=== PATIENT | female | born 1945 | race Caucasian/White ===

== ENCOUNTER → 2021-02-19 09:58 | Outpatient (CLI) | payer MEDICARE, OTHER, SELFPAY ==
[2021-02-19 10:22] LABS: Basophils # 0.1 K/mm3 (0-0.2); Basophils % 1.3 % (0.1-2.0); Eosinophils # 0.2 K/mm3 (0.0-0.4); Eosinophils % 2.2 % (0.1-12.0); Hematocrit 46.5 % (37.0-47.0); Hemoglobin 14.8 g/dL (12.2-16.2); Lymphocytes # 1.8 K/mm3 (0.7-4.5); Lymphocytes % 27.4 % (10-50); Mean Corpuscular HGB Conc 31.8 g/dL (31.8-35.4); Mean Corpuscular Hemoglobin 30.3 pg (27.0-31.2); Mean Corpuscular Volume 95.4 fl (81-99); Mean Platelet Volume 7.6 fl (7.4-10.4); Monocytes # 0.4 K/mm3 (0.1-1.0); Neutrophils # 4.2 K/mm3 (1.8-7.8); Neutrophils % 63.1 % (37.0-80.0); Platelet Count 304 K/mm3 (142-424); Red Blood Count 4.88 M/mm3 (4.20-5.40); White Blood Count 6.6 K/mm3 (4.8-10.8)
[2021-02-19 10:51] LABS: Chloride 108 mmol/L (98-107)
[2021-02-19 10:52] LABS: Potassium 4.2 mmoL/L (3.5-5.1); Sodium 143 mmol/L (136-145)
[2021-02-19 10:54] LABS: Alanine Aminotransferase 14 U/L (12-78); Alkaline Phosphatase 73 U/L (38-126); Anion Gap 12.2 mEq/L (5-15); Aspartate Amino Transferase 23 U/L (14-36); Bilirubin,Total 0.9 mg/dl (0.2-1.3); Blood Urea Nitrogen 20 mg/dl (7-17); Carbon Dioxide 27 mmol/L (22.0-30.0); Cholesterol 153 mg/dl (140-200); Estimated Glomerular Filt Rate 70 ml/min (>60); GFR (African American) 84 ML/MIN (>60); Triglycerides 59 mg/dl (30-150); VLDL Cholesterol 12 mg/dL (0-40)
[2021-02-19 10:55] LABS: Albumin Level 4.3 g/dl (3.5-5.0); Calcium 8.9 mg/dl (8.4-10.2); Globulin 2.2 g/dL (1.3-3.2); Glucose 87 mg/dl (74-100); HDL Cholesterol 79 mg/dl (40-60); Total Protein,Serum 6.5 g/dl (6.3-8.2)
[2021-02-19 10:58] LABS: Chol/HDL Ratio 1.9 (1-3.5)
[2021-02-19 11:06] LABS: Direct LDL Cholesterol 53.96 mg/dL (100-129)
[2021-02-19 11:11] LABS: 25-OH Vitamin D, Total 35.3 ng/mL (30-100)
[2021-02-19 11:25] LABS: Thyroid Stimulating Hormone 3.18 uIU/mL (0.465-4.68)
== END ==
PROVIDERS: Visit Provider Internal Medicine Adolescent Medicine
DX: I48.0 Paroxysmal atrial fibrillation (principal); M79.7 Fibromyalgia; M89.49 Other hypertrophic osteoarthropathy, multiple sites; G47.33 Obstructive sleep apnea (adult) (pediatric); E66.9 Obesity, unspecified; Z68.33 Body mass index [BMI] 33.0-33.9, adult
CPT/HCPCS: 36415; 80053; 80061; 82306; 84443; 85025

== ENCOUNTER → 2021-05-26 10:49 | Outpatient (POV) | payer MEDICARE, OTHER, SELFPAY | PROVIDERS: Visit Provider Dermatology | DX: Z00.00 Encounter for general adult medical examination without abnormal findings (principal) ==

== ENCOUNTER → 2021-06-23 14:13 | Outpatient (CLI) | payer MEDICARE, OTHER, SELFPAY ==
--- NOTE | 2021-06-23 14:20 | CA_ITS ---
APPROVED REPORT EXAM: Comprehensive 2D, Doppler, and color-flow Echocardiogram Data Processing Manager: Rebeca Beach, RCS, RVS Ht: 5 ft 6 in Wt: 210lbs BSA: 2.04 BP: 108/68 mmHg Indications: COPD, HTN, A-Fib, SOB, Hx- RadiationTherapy 2D Dimensions IVSd 0.94 cm F: 0.6-1.0 LVEF (Visual) 77.90 % PWd 0.90 cm F: 0.6 - 1.0 LA Volume 52.10 mL LVDd 4.99 cm F: 3.9 - 5.3 LA Volume Index 25.53 mL/m2 (M/F) 16-34 LVDs 2.66 cm F: 2.2 - 3.5 Left Atrium 3.66 cm F: 2.7 - 3.8 LVOT 1.95 cm (M/F) 1.5-2.5 M-Mode Dimensions LA Diam 4.00 cm (1.9-4.0) Ao Diam 2.92 cm (2.0-3.7) EPSs 0.44 cm TAPSE 1.96 (<1.7) LV Diastology E Decel Time 277.00 (160-240 msec) E/A Ratio 0.82 MED E' 8.20 (< 7 cm/sec) MED A' 12.40 cm/s E'/MED E' Ratio 8.73 (>14) LAT E' 7.00 (<10 cm/sec) LAT A' 12.70 cm/s E/LAT E' Ratio 10.23 (>14) Aortic Valve LVOT Max 123.00 (70-110 cm/s) LVOT VTI 28.60 cm AoV Peak Shawn. 194.00 (50-130 cm/s) AI PHT 559.00 ms AO Peak GR. 15.10 mmHg AO Mean GR. 7.30 (<5 mmHg) AO VTI 42.90 (18-25 cm) ROBERTO (VTI) 1.99 (2.5-4.5 cm2) Mitral Valve MV A Velocity 87.00 (40-130 cm/s) E/A Ratio 0.82 MV Decel. Time 277.00 (160-240 ms) Pulmonary Valve PV Peak Velocity 75.00 (50-150 cm/s) Tricuspid Valve TR P. Velocity 246.00 cm/s RAP Estimate 10.00 mmHg RVSP 34.30 mmHg Left Ventricle Left atrium is mildly enlarged, left ventricle is normal size, mild concentric left ventricular hypertrophy, visually estimated ejection fraction 55% with no regional wall motion abnormality, grade 1 diastolic dysfunction seen without tissue Doppler evidence of raise left atrial pressure. Right Ventricle Right atrium and right ventricle are mildly enlarged with normal contractility. Aortic Valve Aortic valve is thickened and calcified without Doppler evidence of aortic stenosis, there is mild aortic insufficiency. Mitral Valve Mitral valve grossly normal, there is mild mitral regurgitation. Tricuspid Valve Tricuspid grossly normal, there is mild tricuspid regurgitation, calculated right ventricular systolic pressure is 34 mmHg. Pulmonic Valve Pulmonic valve is poorly visualized. Great Vessels Aortic root is normal size. Inferior vena cava normal size with normal inspiratory collapse. Pericardium No significant pericardial effusion noted. Conclusion 1. Mild biatrial enlargement, normal left ventricular size, mild concentric left ventricular hypertrophy, visually estimated ejection fraction 55% with no regional wall motion abnormality, grade 1 diastolic dysfunction seen without tissue Doppler evidence of raise left atrial pressure. 2. Mildly enlarged right ventricle with normal contractility. 3. Mild aortic, mild mitral and tricuspid regurgitation. 4. No significant pericardial effusion noted. Electronically signed by : Ortega Ragland MD 06/23/2021 21:12:02
== END ==
PROVIDERS: PCP Internal Medicine Adolescent Medicine; Visit Provider Internal Medicine Adolescent Medicine
DX: I48.0 Paroxysmal atrial fibrillation (principal)
CPT/HCPCS: 93306

== ENCOUNTER → 2022-02-08 12:55 | Outpatient (CLI) | payer MEDICARE, OTHER, SELFPAY ==
--- NOTE | 2022-02-08 12:58 | MM_ITS ---
PROCEDURE INFORMATION: Exam: Bilateral Screening 3D Mammography Exam date and time: 02/08/2022 1:28 PM Age: 76 years old Clinical indication: Screening examination TECHNIQUE: Imaging protocol: Bilateral Screening tomosynthesis and 2D mammography including computer-aided detection (CAD) when performed. COMPARISON: No relevant prior studies available. FINDINGS: MAMMOGRAPHY: Breast composition: The breast is heterogeneously dense, which may obscure small masses. Mass: 14 mm mass within the lower slightly inner anterior right breast (possibly glandular structure) should be further assessed with spot views in CC/MLO projection. Ultrasound should also be performed. Architectural distortion: No new or suspicious architectural distortion. Calcifications: Stable benign-appearing calcifications are present. No new or suspicious cluster of microcalcifications have developed. Asymmetric density: No new or suspicious asymmetric density is present Skin thickening: None. Axillary adenopathy: None. IMPRESSION: 14 mm mass within the lower slightly inner anterior right breast (possibly glandular structure) should be further assessed with spot views in CC/MLO projection. Ultrasound should also be performed. ASSESSMENT: BI-RADS category 0: Incomplete-need additional imaging evaluation and/or prior mammograms for comparison.
== END ==
PROVIDERS: PCP Internal Medicine Adolescent Medicine; Visit Provider Nurse Practitioner Family
DX: Z12.31 Encounter for screening mammogram for malignant neoplasm of breast (principal); Z85.3 Personal history of malignant neoplasm of breast
CPT/HCPCS: 77063; 77067

== ENCOUNTER → 2022-06-02 10:12 | Outpatient (CLI) | payer MEDICARE, OTHER, SELFPAY ==
--- NOTE | 2022-06-02 10:18 | XR_ITS ---
FINAL REPORT CLINICAL HISTORY: cough FINDINGS: Two views of the chest show lungs to be clear. Pulmonary vascularity is normal. Heart and mediastinum are unremarkable. No pleural effusion is present. IMPRESSION: No active disease. Reviewed, Interpreted and Dictated by Eryn Jiang MD Transcribed by Gina Kaur Authenticated and . [facility]
== END ==
PROVIDERS: PCP Internal Medicine Adolescent Medicine; Visit Provider Internal Medicine Pulmonary Disease
DX: R05.3 Chronic cough (principal)
CPT/HCPCS: 71046

== ENCOUNTER → 2023-02-22 09:17 | Outpatient (CLI) | payer MEDICARE, OTHER, SELFPAY ==
--- NOTE | 2023-02-22 09:24 | MM_ITS ---
PROCEDURE INFORMATION: Exam: MG Bilateral Screening 3D Mammography Exam date and time: 02/22/2023 9:13 AM Age: 77 years old Clinical indication: Screening mammogram TECHNIQUE: Imaging protocol: Bilateral Screening tomosynthesis and 2D mammography including computer-aided detection (CAD) when performed. COMPARISON: 1. MG MM DIG SCREENING MAMM BI W/CAD 02/08/2022 1:28 PM 2. MG MM Mammogram Diagnostic DDI Bilat 01/06/2021 1:43 PM FINDINGS: MAMMOGRAPHY: Breast composition: The breast is heterogeneously dense, which may obscure small masses. Mass: None. Stable benign right axillary tail subcentimeter lymph node is incidentally noted Architectural distortion: No new or suspicious architectural distortion. Calcifications: No new or suspicious calcifications are present Asymmetric density: No new or suspicious asymmetric density is present Skin thickening: None. Axillary adenopathy: None. IMPRESSION: No mammographic evidence of malignancy. Recommend annual screening mammography unless otherwise clinically indicated. ASSESSMENT: BI-RADS category 2: Benign
--- NOTE | 2023-02-22 09:26 | XR_ITS ---
FINAL REPORT TECHNIQUE: Bone densitometry calculations of the lumbar spine and left hip were obtained. 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 This may be falsely elevated secondary to hypertrophic changes. Using the left hip, the bone mineral density of the femoral neck is 0.740 g/cm2, corresponding to a T-score of -1.7. Using the right hip, the bone mineral density of the femoral neck is 0.798 g/cm2, corresponding to a T-score of -1.2. NOTE: T-score: Standard deviation compared with peak bone mass of young adult mean. *Following the recommendations of the International Society of Bone densitometry, classification of hip BMD is based on the lower of two T-scores; total hip or femoral neck. IMPRESSION: Diminished bone mineral density of the hips consistent with osteopenia. Normal bone mineral density of the lumbar spine however may be falsely elevated secondary to hypertrophic changes. FRAX data reports major osteoporotic fracture of 21% and hip fracture of 5.3%. Reviewed, Interpreted and Dictated by Jerry Henderson MD Transcribed by Gina Kaur Authenticated and [facility]
== END ==
PROVIDERS: PCP Internal Medicine Adolescent Medicine; Visit Provider Internal Medicine Medical Oncology
DX: Z12.31 Encounter for screening mammogram for malignant neoplasm of breast (principal); Z78.0 Asymptomatic menopausal state
CPT/HCPCS: 77063; 77067; 77080

== ENCOUNTER → 2023-03-09 16:11 | Outpatient (CLI) | payer MEDICARE, OTHER, SELFPAY ==
--- NOTE | 2023-03-09 16:18 | XR_ITS ---
PROCEDURE INFORMATION: Exam: XR Left Foot Complete; Alignment Exam date and time: 03/09/2023 4:31 PM Age: 77 years old Clinical indication: Patient HX: Left foot pain, no injury. 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 TECHNIQUE: Imaging protocol: Radiologic exam of the left foot. Views: 3 or more views. COMPARISON: No relevant prior studies available. FINDINGS: Bones/joints: No visible fracture or dislocation. Lisfranc interval is intact. Mild hallux valgus deformity Soft tissues: Normal. IMPRESSION: No visible fracture or dislocation.
--- NOTE | 2023-03-09 16:18 | XR_ITS ---
PROCEDURE INFORMATION: Exam: XR Right Ankle Exam date and time: 03/09/2023 4:31 PM Age: 77 years old Clinical indication: Patient HX: Left ankle pain, no known injury. 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 TECHNIQUE: Imaging protocol: Radiologic exam of the right ankle. Views: 3 or more views. COMPARISON: No relevant prior studies available. FINDINGS: Bones/joints: No visible fracture or dislocation. The mortise joint space is symmetric. Calcaneal spur noted Soft tissues: Normal. IMPRESSION: No visible fracture or dislocation.
--- NOTE | 2023-03-09 16:18 | XR_ITS ---
PROCEDURE INFORMATION: Exam: XR Right Foot Complete; Alignment Exam date and time: 03/09/2023 4:31 PM Age: 77 years old Clinical indication: Patient HX: Right foot pain, no known injury. 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 TECHNIQUE: Imaging protocol: Radiologic exam of the right foot. Views: 3 or more views. COMPARISON: No relevant prior studies available. FINDINGS: Bones/joints: No visible fracture or dislocation. Lisfranc interval is intact. Mild hallux valgus deformity noted. Soft tissues: Normal. IMPRESSION: No visible fracture or dislocation.
--- NOTE | 2023-03-09 16:18 | XR_ITS ---
PROCEDURE INFORMATION: Exam: XR Left Ankle Exam date and time: 03/09/2023 4:31 PM Age: 77 years old Clinical indication: Patient HX: Left ankle pain, no known injury. 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 TECHNIQUE: Imaging protocol: Radiologic exam of the left ankle. Views: 3 or more views. COMPARISON: No relevant prior studies available. FINDINGS: Bones/joints: No visible fracture or dislocation. The mortise joint space is symmetric. Small calcaneal spur noted Soft tissues: Normal. IMPRESSION: No visible fracture or dislocation.
== END ==
PROVIDERS: PCP Nurse Practitioner Family; Visit Provider Nurse Practitioner Family
DX: M79.671 Pain in right foot (principal); M79.672 Pain in left foot; M25.571 Pain in right ankle and joints of right foot; M25.572 Pain in left ankle and joints of left foot; M20.11 Hallux valgus (acquired), right foot; M20.12 Hallux valgus (acquired), left foot
CPT/HCPCS: 73610; 73630

== ENCOUNTER 2024-03-01 12:39 | Outpatient (CLI) | payer MEDICARE, OTHER, SELFPAY | END 2024-03-01 23:59 | disposition home or self-care (01) | LOC: RAD 12:40 | PROVIDERS: PCP Nurse Practitioner Family; Visit Provider Internal Medicine Medical Oncology | DX: Z12.31 Encounter for screening mammogram for malignant neoplasm of breast (principal) | CPT/HCPCS: 77063; 77067 ==

== ENCOUNTER 2024-05-15 09:20 | Outpatient (CLI) | payer MEDICARE, OTHER, SELFPAY ==
--- OUTSIDE RECORDS SUMMARY | 2024-05-15 09:22 | XMS_ITS | Continuity of Care Document ---
Author Name [facility] Organization Interface Problems Problem Status Onset Date Classification Date Reported Comments Source Tobacco use(<span ID= [id number] > Confirmed</span>) Resolved 2 12/23/2021 [facility] [place] Breast cancer Active 2 12/23/2021 [facility] [place] Obstructive sleep apnea syndrome (disorder) 0 04/09/2020 [facility] [place] Obesity (disorder) 0 04/09/[address] [facility] [place] Dyspnea (finding) 0 04/09/2020 [facility] [place] ELAINE on CPAP Active 0 04/09/[address] [facility] [place] BOWDEN (dyspnea on exertion) Active 0 04/09/[address] [facility] [place] Obesity (BMI 30.0-34.9) Active 0 04/09/2020 [facility] [place] Pneumonia (disorder) 0 02/19/[address] [facility] [place] Dyspnea Active 0 02/19/2020 [facility] [place] PNA (pneumonia) Active 0 02/19/2020 [facility] [place] SOB (shortness of breath) 9 03/06/[address] 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 Med S[facility]hdev Pulol[facility], [facility] [place], Critical access hospital, [facility] Glaucoma(<span ID= [id number] > Confirmed</span>) Active 12/23/[address] [facility] Med S[facility] Pul[facility], [facility] [place], [facility], [facility], [facility], [facility] Breast cancer(<span ID= [id number] > Confirmed</span>) Active 12/23/[address] [facility] Med S[facility]hdev Pulol[facility], [facility] [place], [facility], [facility], [facility], [facility] Obesity (BMI 30.0-34.9)(<span ID= [id number] > Confirmed</span>) Active 12/23/[address] [facility] Med S[facility]hdev Pul[facility], [facility] [place], [facility], [facility], [facility], [facility] ELAINE on CPAP(<span ID= [id number] > Confirmed</span>) Active 12/23/[address] [facility] Med S[facility]dev Pul[facility], [facility] [place], [facility], [facility], [facility], [facility] Paroxysmal atrial fibrillation(<span ID= [id number] > Confirmed</span>) Active 12/23/[address] [facility] Med S[facility] Pulm [place], [facility] [place], [facility] [place], [facility], [facility], [facility] Dyspnea(<span ID= [id number] > Confirmed</span>) Active 12/23/[address] [facility] Med S[facility]dev Pulm [place], [facility] [place], [facility], [facility] Medications Medication Details Route Status Patient Instructions Ordering Provider Order Date Source albuterol HFA MDI 90mCg/puff inhalation aerosol
2 Puff, Inhalation, 4 Times Daily, PRN as needed for wheezing, Maintenance, 02/18/20 12:03:00 EDT Active [address] [facility], [facility], Critical access hospital, [facility] exemestane 25 mg oral tablet
25 mg, = 1 Tablet, Orally, Daily, Maintenance, Dispense: 90 Tablet, Refills: 3, Total Refills: 3, 01/12/19 11:41:00 EDT, Pharmacy: [id number], 1 Tablet Orally Daily Active [address] [facility], [facility] [place], Critical [facility], [facility], [facility] {2 (480 ML Magnesium Sulfate 0.0277 MEQ/ML / potassium sulfate 0.0374 MEQ/ML / sodium sulfate 0.257 MEQ/ML Oral Solution) } Pack [Suprep Bowel Prep Kit] Active 018 [facility], [facility] Xyzal
Orally, Every PM, Maintenance, 02/09/18 10:56:36 EDT Active 018 [facility], [facility], Critical access hospital, [facility], [facility], [facility] exemestane 25 mg oral tablet Active 018 [facility], [facility] Acetaminophen 325 MG / Hydrocodone Bitartrate 7.5 MG Oral Tablet Active 014 [facility], [facility] Chondroitin-Gluc osamine
1 Capsule, Orally, Daily, Maintenance, 03/26/14 11:13:46 EDT, Supply Active [address] [facility], [facility] [place], Critical access hospital, [facility], [facility], [facility] calcium citrate
calcium citrate, 1 Tablet, Orally, BID, Maintenance, 03/26/14 11:12:42, Supply Active 014 [facility], [facility], [facility], [facility], [facility] Singulair
10 mg, Orally, Every PM, Maintenance, 03/26/14 10:25:06, Supply Active 014 [facility] [place], [facility], [facility], [facility], [facility], [facility] venlafaxine
37.5 mg, Orally, Daily, Maintenance, 03/26/14 10:24:10, Supply Active 014 [facility] [place], [facility], [facility], [facility], [facility], [facility] Ranitidine
300 mg, Orally, Daily, Maintenance, 03/26/14 10:23:26, Supply Active 014 [facility] [place], [facility], [facility], [facility], [facility] Pravastatin
10 mg, Orally, At Bedtime, Maintenance, 03/26/14 9:50:31, Supply Active 014 [facility], [facility], [facility], [facility], [facility], [facility] Vitamin D3 2000 intl units oral capsule
2000 iu, Orally, Daily, Maintenance, 03/26/14 9:38:05, Supply Active 014 [facility] [place], [facility], [facility], [facility], [facility], [facility] Verapamil
120 mg, Orally, BID, Maintenance, verapamil ER (SR), 03/26/14 9:31:38, Supply Active 014 [facility] [place], [facility], [facility], [facility], [facility], [facility] Allergies, Adverse Reactions, Alerts Substance Category Reaction Severity Reaction type Status Date Reported Comments Source Levaquin Assertion Joint pain (finding) Drug allergy Active [facility] [place], [facility] [place], [facility] , [facility], [facility] , [facility] Immunizations Immunization Date Given Site Status Last Updated Comments So urce SARS-CoV-2 mRNA-1273 vaccine 10/22/2020 completed [place] [facility] [place] SARS-CoV-2 (COVID-19) mRNA-1273 vaccine 10/22/2020 completed [place] [facility], [facility] SARS-CoV-2 mRNA-1273 vaccine 09/21/2020 completed [place] [facility] SARS-CoV-2 (COVID-19) mRNA-1273 vaccine 09/21/2020 [facility], [facility] influenza virus vaccine, inactivated 05/26/[address] [facility] [place], Critical access hospital, [facility] influenza virus vaccine, inactivated 05/29/2019 completed Her [facility] [place], [facility] [place], Critical access hospital, [facility] influenza virus vaccine, inactivated 06/23/2018 completed Her [facility] [place], [facility] [place], [facility], [facility] zoster vaccine, inactivated 05/12/2018 completed Her [facility] [place], [facility] [place], [facility], [facility] zoster vaccine, inactivated 02/13/[address] [facility] [place], [facility] [place], [facility], [facility] influenza virus vaccine, inactivated 06/06/2017 completed Her [facility] [place], [facility] [place], [facility], [facility] influenza virus vaccine, inactivated 06/15/[address] [facility] [place], [facility] [place], [facility], [facility] pneumococcal 13-valent vaccine 05/14/[address] [facility] [place], [facility] [place], [facility] pneumococcal 13-valent conjugate vaccine 05/14/[address] [facility] [place], [facility], [facility] influenza virus vaccine, inactivated 05/26/[address] [facility] [place], [facility] [place], [facility], [facility] influenza virus vaccine, inactivated 06/20/[address] [facility] [place], [facility] [place], [facility], [facility] influenza virus vaccine, inactivated 06/13/[address] [facility] [place], [facility] [place], [facility], [facility] influenza virus vaccine, inactivated 06/05/[address] [facility] [place], [facility] [place], [facility], [facility] pneumococcal 23-valent vaccine 05/24/[address] [facility] [place], [facility] [place], [facility] pneumococcal 23-polyvalent vaccine 05/24/[address] [facility] [place], [facility], [facility] influenza virus vaccine, H1N1, inactive 08/27/[address] [facility] [place], [facility] [place], [facility], [facility] zoster vaccine live 06/18/[address] [facility] [place], [facility] [place], [facility], [facility] Results Order Name Results Value Reference Range Date Interpretatio n Comments Source Vital Signs Vital Sign Value Date Comments Source IBW Charted per RT 59.26 kg 12/22/[address] [facility] Me Dayne Yao Height CM 167.6 cm 12/22/[address] [facility] Merry Huff cie Weight KG 98.5 kg 12/22/[address] [facility] Carmenza Refugio hernandez Weight method Actual - Standing
(12/22/21 1:49 PM) 12/22/2021 MICHELE Yao BSAM2 Weight in kg 2.14 m2 12/22/[address] [facility] Me Dayne Yao BMI Weight in kg 35.1 kg/m2 12/22/2021 [facility] [place] Temperature 36.3 [place] 12/22/2021 [facility] [place] Temperature Far Calculated 97.3 [degF] 12/22/2021 [facility] [place] Heart Rate 67 bpm 12/22/2021 [facility] [place] [facility] Respiratory Rate 17 br/min 12/22/2021 [facility] [place] O2 Sats 95 % 12/22/2021 [facility] [place] Systolic Blood Pressure #1 126 mm[Hg] 12/22/2021 [facility] [place] Diastolic Blood Pressure #1 84 mm[Hg] 12/22/2021 [facility] [place] Mean Arterial Pressure #1 Calculated 98 mm[Hg] 12/22/2021 [facility] [place] IBW Charted per RT 59.26 kg 04/08/2020 [facility] [place] Height CM 167.6 cm 04/08/2020 [facility] [place] Weight KG 98.5 kg 04/08/2020 [facility] [place] BSAM2 Weight in kg 2.14 m2 04/08/2020 [facility] [place] BMI Weight in kg 35.1 kg/m2 04/08/2020 [facility] [place] Heart Rate 71 bpm 04/08/2020 [facility] [place] O2 Sats 98 % 04/08/2020 [facility] [place] Systolic Blood Pressure #1 122 mm[Hg] 04/08/2020 [facility] [place] Diastolic Blood Pressure #1 68 mm[Hg] 04/08/2020 [facility] [place] Mean Arterial Pressure #1 Calculated 86 mm[Hg] 04/08/2020 [facility] [place] IBW Charted per RT 59.26 kg 02/18/2020 [facility] [place] Height CM 167.6 cm 02/18/2020 [facility] [place] Weight KG 99.4 kg 02/18/2020 [facility] [place] BSAM2 Weight in kg 2.15 m2 02/18/2020 [facility] [place] BMI Weight in kg 35.4 kg/m2 02/18/2020 [facility] [place] Heart Rate 86 bpm 02/18/2020 [facility] [place] O2 Sats 96 % 02/18/[address] [facility] [place] Systolic Blood Pressure #1 110 mm[Hg] 02/18/[address] [facility] [place] Diastolic Blood Pressure #1 60 mm[Hg] 02/18/[address] [facility] [place] Mean Arterial Pressure #1 Calculated 77 mm[Hg] 02/18/[address] [facility] [place] IBW Charted per RT 59.26 kg 01/22/[address] [facility] d[facility]c [place] Height CM 167.6 cm 01/22/[address] [facility]c [place] Weight KG 99.4 kg 01/22/[address] [facility] MedOnc Ref[place] cie BSAM2 Weight in kg 2.15 m2 01/22/[address] [facility] [place] BMI Weight in kg 35.4 kg/m2 01/22/[address] [facility] [place] Temperature 36.6 [place] 01/22/[address] [facility] MedOnc Mu n[place] Temperature Far Calculated 97.9 [degF] 01/22/[address] [facility] [place] Heart Rate 78 bpm 01/22/[address] [facility] MedOnc [place] c[place] Respiratory Rate 16 br/min 01/22/[address] [facility] [place] O2 Sats 92 % 01/22/[address] [facility] [place] Systolic Blood Pressure #1 120 mm[Hg] 01/22/[address] [facility] [place] Diastolic Blood Pressure #1 78 mm[Hg] 01/22/[address] [facility] [place] Mean Arterial Pressure #1 Calculated 92 mm[Hg] 01/22/[address] [facility] [place] BP # 1 Method Manual/Cuff
(01/22/20 10:17 AM) 01/22/[address] [facility] [place] BP # 1 Location Arm, Upper Right
(01/22/20 10:17 AM) 01/22/[address] [facility] [place] BP # 1 Position Sitting
( 0 10:17 AM) 01/22/[address] [facility] [place] Weight KG 97.7 kg 02/15/[address] [facility] [place] BSAM2 Weight in kg 2.13 m2 02/15/[address] [facility] Me dCon Pul[facility] [place] BMI Weight in kg 34.8 kg/m2 02/15/[address] [facility] MedC on Pul[facility] [place] Height CM 167.6 cm 02/15/[address] [facility] [place] O2 Sats 95 % 02/15/2019 [facility] [place] Systolic Blood Pressure #1 120 mm[Hg] 02/15/2019 [facility] [place] Diastolic Blood Pressure #1 84 mm[Hg] 02/15/2019 [facility] [place] Heart Rate 73 bpm 02/15/[address] [facility] [place] Mean Arterial Pressure #1 Calculated 96 mm[Hg] 02/15/[address] [facility] [place] IBW Charted per RT 59.26 kg 02/15/2019 [facility] [place] IBW Charted per RT 59.26 kg 02/02/2019 [facility] Mean Arterial Pressure #1 Calculated 93 mm[Hg] 02/02/2019 [facility] O2 Sats 96 % 02/02/2019 [facility] Systolic Blood Pressure #1 118 mm[Hg] 02/02/2019 [facility] Diastolic Blood Pressure #1 80 mm[Hg] 02/02/2019 [facility] BSAM2 Weight in kg 2.11 m2 02/02/2019 [facility] Height CM 167.6 cm 02/02/2019 [facility] Weight KG 95.7 kg 02/02/2019 [facility] BMI Weight in kg 34.1 kg/m2 02/02/2019 [facility] Temperature 36.5 [place] 02/02/2019 [facility] Respiratory Rate 16 br/min 02/02/2019 [facility] Temperature Far Calculated 97.7 [degF] 02/02/2019 [facility] Heart Rate 64 bpm 02/02/2019 [facility] Systolic Blood Pressure #1 143 mm[Hg] 06/15/2018 [facility] Diastolic Blood Pressure #1 72 mm[Hg] 06/15/2018 [facility] Mean Arterial Pressure #1 Calculated 96 mm[Hg] 06/15/2018 [facility] O2 Sats 95 % 06/15/2018 [facility] O2 Delivery Mode Room air
(06/15/18 8:13 AM) 06/15/2018 [facility] Respiratory Rate 19 br/min 06/15/2018 [facility] Heart Rate 68 bpm 06/15/2018 [facility] Respiratory Rate 20 br/min 06/15/2018 [facility] Heart Rate 84 bpm 06/15/2018 [facility] O2 Sats 93 % 06/15/2018 [facility] Systolic Blood Pressure #1 114 mm[Hg] 06/15/2018 [facility] Diastolic Blood Pressure #1 54 mm[Hg] 06/15/2018 [facility] O2 Delivery Mode Room air
(06/15/18 8:03 AM) 06/15/2018 [facility] Mean Arterial Pressure #1 Calculated 74 mm[Hg] 06/15/2018 [facility] Heart Rate 68 bpm 06/15/2018 [facility] Mean Arterial Pressure #1 Calculated 77 mm[Hg] 06/15/2018 [facility] Respiratory Rate 18 br/min 06/15/2018 [facility] Systolic Blood Pressure #1 112 mm[Hg] 06/15/2018 [facility] Diastolic Blood Pressure #1 59 mm[Hg] 06/15/2018 [facility] O2 Sats 97 % 06/15/2018 [facility] BP # 1 MAP 75 mm[Hg] 06/15/2018 [facility] IBW Charted per RT 59.26 kg 06/15/2018 [facility] BP # 1 Method Monitor
( 6:33 AM) 06/15/2018 [facility] O2 Delivery Mode Room air
(06/15/18 6:33 AM) 06/15/2018 [facility] BMI Weight in kg 32.6 kg/m2 06/15/2018 [facility] BSAM2 Weight in kg 2.07 m2 06/15/2018 [facility] Height CM 167.6 cm 06/15/2018 [facility] Height method Reported
(06/15/18 6:33 AM) 06/15/2018 [facility] Weight method Actual - Standing
(06/15/18 6:33 AM) 06/15/2018 [facility] Weight KG 91.6 kg 06/15/2018 [facility] Patient's Behavior During VS Appropriate
(06/15/18 6:33 AM) 06/15/2018 [facility] Last Vital Signs Documented VITAL SIGNS Temp F: Temp C: Heart Rate: Resp Rate: Peripheral Pulse Rate: BP #1: / SpO2 (%): O2 Flow (l/min): O2 Device: FiO2 (%): 06/15/2018 [facility] Temperature Method Temporal
(06/15/18 6:33 AM) 06/15/2018 [facility] Respiratory Rate Method Observation
(06/15/18 6:33 AM) 06/15/2018 [facility] Heart Rate Method Monitor
( 6:33 AM) 06/15/2018 [facility] Temperature Far Calculated 96.6 [degF] 06/15/2018 [facility] Temperature 35.9 [place] 06/15/2018 [facility] Encounters Location Location Details Encounter Type Encounter Number Reason For Visit Attending Provider ADM Date DC Date Status Source [facility] Outpatient [id number] Ricky Moon 06/15 [facility] [id number] Nathan Martinez 01/09 [facility] [id number] Vielka Yeager 02/01 [facility] [place] BP Outpatient [id number] Nathan Martinez 02/02 [facility] Outpatient [id number] Nikita Pham 02/15 [facility] [place] [facility] [place] OUTPATIENTME SSAGE 0 02/16 [facility] [place] Pulm [facility] Outpatient [id number] Nikita Malikapalli 03/05 [facility] [place] [facility] Outpatient [id number] Nathan Martinez 01/10 [facility] Med[facility] [place] Outpatient [id number] Ale Awomolo 01/21 [facility] [place] Pulm [facility] Outpatient [id number] Nikita Malikapalli 02/17 [facility] [place] Pulm [facility] Outpatient [id number] Nikita Malikapalli 04/08 [facility] [place] [facility] Outpatient [id number] Ale Awomolo 01/06 [facility] [place] OUTPATIENTME SSAGE 0 07/21 [facility] [id number] Ale Awomolo 12/22 [facility] [place] Procedures Procedure Code Date Perfomer Comments Source Colonoscopy [id number] 06/05/2018 [facility] [place] Colonoscopy [id number] 06/05/2018 [facility] [place] Colonoscopy [id number] 06/05/2018 [facility] Colonoscopy [id number] 06/05/2018 [facility] Colonoscopy [id number] 06/05/2018 [facility] [place] Right total knee replacement 04/01/2014 [facility] Right total knee replacement 04/01/2014 [facility] Right total knee replacement 04/01/2014 [facility] Right total knee replacement 04/01/2014 [facility] [place] Right total knee replacement 04/01/2014 [facility] Right total knee replacement 04/01/2014 [facility] [place] on bilateral cataracts [facility] Bone density scan [id number] [facility] rt knee scoped x 2 [facility] Bone density scan [id number] [facility] rt knee scoped x 2 [facility]lect[facility] bilateral cataracts [facility] [place] Bone density scan [id number] [facility] [place] hysterectomy [facility] [place] lt lumpectomy [facility] [place] rt knee scoped x 2 B [facility] [place] tonsillectomy [facility] [place] bilateral cataracts [facility] [place] Bone density scan [id number] [facility] [place] hysterectomy [facility] [place] lt lumpectomy BMP [facility] [place] rt knee scoped x 2 B [facility] [place] tonsillectomy [facility] [place] bilateral cataracts [facility] Bone density scan [id number] [facility]pectomy [facility] rt knee scoped x 2 [facility] Bone density scan [id number] [facility] [place] lt lumpectomy [facility] [place] tonsillectomy [facility] [place] rt knee scoped x 2 B [facility] [place] hysterectomy [facility] [place] bilateral cataracts [facility] [place]
--- NOTE | 2024-05-15 09:23 | CA_ITS ---
APPROVED REPORT EXAM: Comprehensive 2D, Doppler, and color-flow Echocardiogram Winder Tender: Re[place]a [place], RCS, RVS Ht: 5 ft 6 in Wt: 204lbs BSA: 2.02 BP: 120/73 mmHg Indications: LVH, Afib, Cardiomegaly, Palpitations, DD, Hx-breast CA 2D Dimensions IVSd 0.79 cm LVEF (Visual) 64.50 % PWd 1.08 cm LA Volume 52.30 mL LVDd 4.27 cm LA Volume Index 25.30 mL/m2 (M/F) 16-34 LVDs 2.78 cm EF AP4 67.00 % Left Atrium 3.14 cm GL Strain -27.6 % M-Mode Dimensions LA Diam 4.52 cm (1.9-4.0) EPSs 0.36 cm TAPSE 2.47 (<1.7) LV Diastology E Decel Time 220 (160-240 msec) E/A Ratio 0.95 MED A' 12.30 cm/s LAT A' 13.80 cm/s Aortic Valve ROBERTO Index 0.98 cm2/m2 AoV Peak Shawn. 152.0 (50-130 cm/s) AO Peak GR. 9.30 mmHg AO Mean GR. 4.80 (<5 mmHg) AO VTI 28.6 (18-25 cm) ROBERTO (VTI) 2.03 (2.5-4.5 cm2) Mitral Valve MV A Velocity 63.0 (40-130 cm/s) E/A Ratio 0.95 Tricuspid Valve TR P. Velocity 243.00 cm/s RAP Estimate 10.00 mmHg RVSP 33.60 mmHg Left Ventricle The left ventricle is normal size. The left ventricular systolic function is normal. The left ventricular ejection fraction is within the normal range. There is increased LV wall thickness. There is normal LV segmental wall motion. Transmitral Doppler flow pattern suggests impaired LV relaxation. LVEF is 55%. Right Ventricle Right ventricle is mildly dilated. The right ventricular systolic function is normal. Atria The left atrium size is normal. The right atrium size is normal. There is no Doppler evidence of interatrial shunt. Aortic Valve The aortic valve is mildly thickened. There is no aortic valvular stenosis. No aortic regurgitation is present. Mitral Valve The mitral valve is normal in structure. No evidence of mitral valve stenosis. Trace mitral regurgitation. Tricuspid Valve The tricuspid valve leaflets are thin and pliable. Mild tricuspid regurgitation. RVSP is 20-25 mmHg. Pulmonic Valve The pulmonary valve is normal in structure. Trace pulmonic regurgitation. Great Vessels The aortic root is normal in size. The ascending aorta is not well-visualized. IVC is normal in size and collapses >50% with inspiration. Pericardium There is no pericardial effusion. Other Information Study Quality: Fair Conclusion Normal biventricular systolic function. Mild RV dilation. Mild TR. Electronically signed by : Charlene Paz MD 05/21/2024 13:14:56
== END 2024-05-15 23:59 | disposition home or self-care (01) ==
LOC: RT 09:20
PROVIDERS: PCP Nurse Practitioner Family; Visit Provider Physician Assistant
DX: I48.0 Paroxysmal atrial fibrillation (principal); I51.7 Cardiomegaly; I34.0 Nonrheumatic mitral (valve) insufficiency; I35.1 Nonrheumatic aortic (valve) insufficiency
CPT/HCPCS: 93306

== ENCOUNTER 2025-03-05 13:10 | Outpatient (CLI) | payer MEDICARE, OTHER, SELFPAY ==
--- OUTSIDE RECORDS SUMMARY | 2025-03-05 13:15 | XMS_ITS | Data Portability ---
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 Plan of Treatment Reminders Order Date Submit Date Provider Last Modified By Organization Details Last Modified Time Details Appointments FOLLOW UP DAK 2024 01:40P M KIANNA JON PA-C Not available Not available Not available Lab None recorded. Referral ophthalmi c plastic and reconstru ctive surgeon referral - - R lower eyelid (lateral edge): 0.7cm scaly pink macule needs biopsy 2024 025 [email or web address] Marty Bustamante MD, [address], [place], [address], 10/23/2024 09:31:58 Procedures None recorded. Surgeries None recorded. Imaging None recorded. Medication Orders triamcino lone acetonide 0.1 % topical cream 2024 025 [facility], [address] [place] [address], [phone], 11/16/2024 17:47:54 Patient TargetsNo targets recorded. Patient InstructionsNo instructions recorded. Reason for Referral Ophthalmic Plastic And Recon structive Surgeon Referral for Neoplasm of uncertain behavior of skin - R lower eyelid (lateral edge): 0.7cm scaly pink macule needs biopsy Referring Physician: Kianna Jon, Dermatology, Encounter Date: 10/11/2024 Problems Name Problem SNOMED Code Status Onset Date Resolution Date Notes Provider Name and Address Organization Details Recorded Time Atrial fibrillation 67105980 Active 2023 [facility] 13:57:19 Malignant tumor of breast 022724390 Active 2023 [facility] 13:57:28 Problem Notes None recorded. Procedures Surgical History Date Name Laterality Status Provider Name and Address Organization Details Recorded Time 5 DAK - Cryo AK completed Anna Vences [facility] 10/11/2024 11:50:09 5 DAK - Destruction BN Lesions completed Anna Ru [facility] 10/11/2024 11:42:29 4 DAK - Cryo AK completed Joe Cotter [facility] 01/26/2024 14:17:14 total knee replacement completed [facility] 01/26/2024 13:58:00 cataract surgery completed [facility] 01/26/2024 13:58:21 Imaging Results None recorded. Procedure Notes None recorded. Medical Equipment None Reported. Allergies No known drug allergies Medications Name Sig Start Date Stop Date Status Note LastModified by Organization Details LastModified Time triamcinolon e acetonide 0.1 % topical cream APPLY A THIN LAYER TO THE BACK BY TOPICAL ROUTE 2 TIMES PER DAY FOR 2 WEEKS THEN 1-2 DAYS WEEKLY NEEDED TO ITCHING 2024 active Not Available Not Available Not Avai lable venlafaxine active Not Available Not A vailable Not Available Singulair active Not Available Not Bridget ilable Not Available pravastatin active Not Available Not A vailable Not Available verapamil active Not Available Not Bridget ilable Not Available Eliquis active Not Available Not Avail able Not Available fluticasone prop 55 mcg/actuatio n breath activated pwdr inhaler,sens or Inhale 1 puff twice a day by inhalation route. active Not Available Not Available No t Available Vitals None Recorded Social History Question Answer Notes LastModified by Organizat ion Details LastModified Time Tobacco Smoking Status Never Smoker [facility] 01/26/2024 13:57:42 What Was The Date Of Your Most Recent Tobacco Screening? 01/26/2024 [email or web address] Information not available 01/26/2024 Sex: Unknown Functional Status None recorded. Mental Status None recorded. Family History Nothing Reported. Medical History No medical history recorded. Gynecological HistoryNo gynecological history recorded. Obstetrics History GPAL:G 0 P 0 0 0 0 Past Encounters Encounter ID Performer Location Encounter Start Date Encounter Closed Date Diagnosis/Indication Diagnosis SNOMED-CT Code Diagnosis ICD10 Code Diagnosis Note [id number] RANDY JAY PA-C [address] [address] 01/26/2024 12:32:18 02/01/2024 15:16:15 Multiple benign melanocytic nevi 463861874 D22.5 - Benign moles seen on exam today- SPF 30 or higher broad-spec trum sunscreen recommende d with re-applica tion every 2 hours- Discussed sun protection measures, including wide-brimm ed hat, sun-protec tive clothing, and avoidance of sun during peak hours of 10am-4pm Seborrheic keratosis [id number] 585680 L82.1 - Benign overgrowth s of skin - Hereditary Senile angioma 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 - Follow-up if lesions persists or do not resolve. Leonardo red spot 84277149 H35.89 - Benign blood vessel- Call if growing, changing or becomes bothersome . [id number] KIANNA JON PA-C [facility] [address] [place] [address] 10/11/2024 11:05:24 10/11/2024 11:56:15 Multiple benign melanocytic nevi 531880620 D22.5 L81.4 L82.1 D18.01 Benign appearing lesions.Re assurance given.Sun protection discussed. Look for physical hakeem sunscreens with at least SPF 30 containing zinc oxide or titanium dioxide as active ingredient .Recommend monthly self examinatio ns and yearly full skin examinatio n with a dermatolog y provider.P atient instructed to call with any concerns or changing lesions. Inflamed s eborrheic keratosis 452415403 L82.0 L29.9 The nature of the diagnosis was explained. Benign. Reassuranc e given.Both ersome lesions (itching, painful, growing, bleeding, getting caught in clothing), neck treated with LN2.Rx prescribed TAC Cream - SE reviewedRe commend Amlactin lotionLesi ons treated may persist. May f/u if treated lesions persist. Actinic keratosis 007 L57.0 The nature of the diagnosis was explained. Pre-cancer ous.Treate d with LN2. Healing process discussed. Pt to call with any concerns or if lesion(s) persist. Neoplasm o f uncertain behavior of skin 99274604 D48.5 The etiology of lesion(s) discussed. Biopsy recommende d. Treated with LN2 previously Referral sent to oculoplast ics due to location for biopsy- r/o AK vs SCCHealing process and wound care discussed. Will call pt with results or post to portal if benign. Health Concerns Section Related Observation LastModified by Organization Detai ls LastModified Time None Recorded Concern Status LastModified by Organization Details LastModified Time None Recorded Advance Directives Directive None Recorded Payers Insurance Date Sequence Insurance Name Policy Number Policy Richard Covered Member ID Richard Member ID Guarantor Name 04/05/2024 2 [employer] Felicia oTny [id number] Felicia Tony 10/08/2024 1 [place] Felicia Tony [id number] Felicia Tony 10/11/2024 2 [employer] SUPPLEMENTAL - [employer] (MEDICARE SUPPLEMENT) Felicia Tony [id number] Felicia Tony 10/11/2024 3 [employer] SUPPLEMENTAL - [employer] (MEDICARE SUPPLEMENT) Felicia Tony [id number] Felicia Tony Notes Date Note Type Note Provider Name and Address Organization Details Recorded Time 01/26/2024 text/html I am here for my skin checkNo hx of NMSC RANDY JAY PA-C [address] [place], [address], [facility] 01/27/2024 10:14:13 10/11/2024 text/html Full skin exam-Hx: none-Last seen: 01/2024-Areas of concern: back, Eyes KIANNA JON PA-C [address] [place], [address], [facility] - [facility] 10/11/2024 12:49:32 OBGyn Episode No OBEpisode recorded.
--- NOTE | 2025-03-05 13:30 | MM_ITS ---
PROCEDURE INFORMATION: Exam: MG Bilateral Screening 3D Mammography Exam date and time: 03/05/2025 1:30 PM Age: 79 years old Clinical indication: Screening examination. TECHNIQUE: Imaging protocol: Bilateral Screening tomosynthesis and 2D mammography including computer-aided detection (CAD) when performed. COMPARISON: 1. MG MM DIG SCREENING MAMM BI W/CAD 03/01/2024 12:47 PM 2. MG MM DIG SCREENING MAMM BI W/CAD 02/22/2023 9:13 AM FINDINGS: MAMMOGRAPHY: Breast composition: The breasts are heterogeneously dense, which may obscure small masses. Mass: None. Architectural distortion: Stable surgical changes in the left medial breast. Calcifications: No suspicious calcifications. Asymmetric density: None. Skin thickening: None. Axillary adenopathy: None. IMPRESSION: No mammographic evidence of malignancy. Annual screening is recommended unless otherwise clinically indicated. ASSESSMENT: BI-RADS Category 2: Benign.
== END 2025-03-05 23:59 | disposition home or self-care (01) ==
LOC: RAD 13:11
PROVIDERS: PCP Nurse Practitioner Family; Visit Provider Internal Medicine Medical Oncology
DX: Z12.31 Encounter for screening mammogram for malignant neoplasm of breast (principal); R92.333 Mammographic heterogeneous density, bilateral breasts; Z85.3 Personal history of malignant neoplasm of breast
CPT/HCPCS: 77063; 77067